=== PATIENT | male | born 1970 | race Caucasian/White ===

== ENCOUNTER 2018-02-02 05:46 | Inpatient (IN) ==
[2018-02-02] MEDS ORDERED: Chlorhexidine Gluconate 2% 1 Pack (2 Cloths) TOPICAL SCH (06:15)
[2018-02-02] MEDS ORDERED: Metoprolol Tartrate 25 MG Tablet PO SCH (06:15)
[2018-02-02] MEDS ORDERED: Sodium Chlor 0.9% Inj 500 ML IV.SIG SCH (07:00)
[2018-02-02] MEDS ORDERED: CEFAZOLIN IV.SIG SCH (07:00)
[2018-02-02] MEDS ORDERED: SODIUM CHLOR 0.9% IV.SIG SCH (07:00)
[2018-02-02 07:14] LABS: INR 1.2 Ratio
[2018-02-02] MEDS ORDERED: Lidocaine PF 1% Inj 5 ML Syringe INFILTRATN ONE (12:00)
[2018-02-02] MEDS ORDERED: Neostigmine Inj 5 MG/5 ML Syringe IV.PUSH ONE (12:00)
[2018-02-02] MEDS ORDERED: Glycopyrrolate Inj 1 MG/5 ML Syringe IV.PUSH ONE (12:00)
[2018-02-02] MEDS ORDERED: Sodium Chlor 0.9% Inj 1,000 ML IV.SIG SCH ×2 (12:00→15:00)
[2018-02-02] MEDS ORDERED: fentaNYL Citrate Inj 100 MCG/2 ML Ampul ONE (12:26)
[2018-02-02] MEDS ORDERED: *morphine SULFATE 10 MG/ML PERIprocedure ONLY ONE ×2 (12:43→12:52)
[2018-02-02 12:47] LABS: Baso % (Auto) 0.2 % (0.0-2.0); Eos % (Auto) 0.1 % (0.0-4.0); Hematocrit 49.4 % (39.0-51.0); Hemoglobin 16.4 gm/dL (13.0-17.0); Lymph # (Auto) 0.5 th/mm3 (1.0-4.8); Lymph % (Auto) 4.5 % (9.0-44.0); Mean Corpuscular HGB Conc 33.2 % (32.0-36.0); Mean Corpuscular Hemoglobin 28.8 pg (27.0-34.0); Mean Corpuscular Volume 86.6 fL (80.0-100.0); Mean Platelet Volume 8.1 fL (7.0-11.0); Mono # (Auto) 0.2 th/mm3 (0.0-0.9); Neut # (Auto) 10.2 th/mm3 (1.8-7.7); Neut % (Auto) 93.2 % (16.0-70.0); Platelet Count 130 th/mm3 (150-450); Red Blood Count 5.71 mil/mm3 (4.50-5.90); Red Cell Distribution Width 14.4 % (11.6-17.2)
[2018-02-02 13:04] LABS: Calcium 7.9 mg/dL (8.5-10.1); Carbon Dioxide 25.7 meq/L (21.0-32.0); Potassium 4.8 meq/L (3.5-5.1)
[2018-02-02] MEDS ORDERED: HYDROmorphone PF Inj 2 MG/ML Vial ONE ×3 (13:07→16:23)
--- NOTE | 2018-02-02 13:32 | MP ---
cc: Samy Galloway MD DATE OF OPERATION: 02/02/2018 DATE OF OPERATION: 02/02/2018 PREOPERATIVE DIAGNOSES: 1. Left 3 cm posterior solid renal mass. 2. History of benign prostatic hypertrophy. POSTOPERATIVE DIAGNOSES: 1. Left 3 cm posterior solid renal mass 2. History of benign prostatic hypertrophy. PROCEDURE PERFORMED: Left robotic radical nephrectomy with Intraoperative Ultrasound. SURGEON: Samy Galloway MD ANESTHESIA: General. COMPLICATIONS: None. PREOPERATIVE ANTIBIOTICS: Ancef 2 g IV. DRAINS: Jacinto catheter. SPECIMENS: Left kidney. ESTIMATED BLOOD LOSS: 50 mL. DISPOSITION: Stable to recovery. INDICATION FOR PROCEDURE: The patient is a 47-year-old male with history of BPH who was found to have a left renal mass several years ago. He has been doing active surveillance to follow this mass closely; however, recently the mass continued to grow in size. Due to concern of malignancy, the patient was then referred for definitive therapy. Treatment options were discussed including continued active surveillance, percutaneous cryoablation versus partial nephrectomy. Risks, benefits and alternatives were explained to the patient regarding each option. The patient consented to proceed with robotic left partial nephrectomy, possible right radical nephrectomy due to the location of the mass. DETAILS OF PROCEDURE: The patient was properly identified, brought back to the operating room and placed supine on the operative table. Proper timeout was performed under direction of Anesthesiology. The patient was intubated and induced under general anesthetics. Preoperative antibiotics in the form of Ancef 2 grams IV were given within 1 hour of start of the procedure. A 16-[place] Jacinto catheter was then placed under sterile technique. He was then placed in the right lateral decubitus position with the left side up. All pressure points were padded. He was then prepped and draped in normal sterile surgical fashion. Stab incision was made that was superior and lateral to the umbilicus triangulated off the xiphoid process of the 12th rib. A Veress needle was then passed into the abdomen and a pneumoperitoneum was achieved. The incision was extended to approximately 2 cm under direct visualization. I then passed a 12 mm camera port. The abdominal cavity was inspected. No evidence of intra-abdominal injury including bleeding was noticed. There was no anterior abdominal adhesions. At this time, the 4 remaining ports were then placed under direct visualization, including two 8 mm robotic ports triangulated off of the camera port, a 5 mm legal assistant port superior to the umbilicus in the midline and a 12 mm legal assistant port inferior to the middle umbilicus in the midline. The robot was then brought into proper position. I began by taking down the white line of Toldt reflecting the colon medially. This exposed the retroperitoneum. I then carefully dissected off the mesentery and the other tissues from the colon and presuming the kidney to expose the retroperitoneum. At this point, I identified the gonadal vein and ureter. A plane was developed between the ureter and the psoas muscle and the aorta. The kidney was then retracted anteriorly and marched up the psoas muscle, following the attachment of the left gonadal vein to the left renal vein. The artery was much inferior when the artery was first identified. It was dissected out circumferentially. There was significant amount of lymphatics and other accessory veins around the artery, which were taken with a robotic vessel sealer. Once the artery and vein were carefully dissected out, I then turned my attention to mobilizing the kidney. This began by taking down the attachments laterally with both blunt dissection and electrocautery to freely mobilize the kidney. At this point, the perinephric fat was then removed from the kidney to expose the kidney itself. I was able to completely remove all the fat from the kidney and flip the kidney over so that the posterior side of the kidney was exposed. I did come across the presumed renal mass. Intraoperative ultrasound was then used to find this mass; however, the mass appeared to go quite deep into the kidney itself and it was unclear whether I could get a negative margin or not. After careful examination, it was decided that it was necessary to remove the entire kidney. At this point, the kidney was then brought back into normal position. The artery and vein were then taken with the endovascular GI stapler separately. The upper pole attachments were then divided and ligated with the robotic vessel sealer. The ureter and gonadal vein inferiorly were taken with the vessel sealer. At this point, the kidney was completely free, it was then placed in an EndoCatch bag for later removal, The renal hilum and adrenal bed were inspected. Hemostasis was achieved. Anusha was then used for hemostatic purposes. However, the renal fossa did appear very dry and the spleen appeared intact. At this point, 3 grams of Anusha again were applied. The robot was then undocked. The kidney was extracted through the left lower quadrant incision. During extraction, the epigastric vein and artery were divided with minimal bleeding. The peritoneum was closed with 3-0 Vicryl. The fascia was then closed with a running #1 PDS. All skin incisions were closed with 4-0 Monocryl. Sponge, needle and instrument count was correct at the end of the case. This concluded the procedure. The patient was extubated and sent to recovery room in stable condition. He will be admitted for routine postoperative care. Samy Galloway MD EMJesus/KD , 11:46 AM , 01:10 PM MTDD
[2018-02-02] MEDS: Pantoprazole Inj 40 MG Vial IV.PUSH SCH (13:58)
[2018-02-02] MEDS: Morphine Inj 4 MG/ML Vial IV.PUSH PRN (17:23)
[2018-02-02] MEDS: Docusate Sodium 100 MG Capsule PO SCH (20:02)
[2018-02-03] MEDS: Morphine Inj 4 MG/ML Vial IV.PUSH PRN (10:08)
[2018-02-03] MEDS: Docusate Sodium 100 MG Capsule PO SCH ×2 (10:08→21:08)
[2018-02-03] MEDS: Fenofibrate 48 MG Tablet PO SCH (10:08)
--- NOTE | 2018-02-03 14:22 | P.PNURO ---
Subjective Patient symptoms today: Pt was seen at the bedside this afternoon. Pain is controlled, no issues overnight. Labs and VS are stable. Ambulating. Powers cath was removed at 6:30am today, he did not void yet. no BM yest. Ate regular food at lunch, no N/V after. no other c/o Objective Vital Signs: Vital Signs 02/02/18 15:00 02/02/18 16:30 02/02/18 18:36 Temperature Pulse Rate 71 60 Respiratory Rate 12 20 Blood Pressure 104/50 L 111/54 L Pulse Oximetry 96 02/02/18 18:37 02/02/18 20:40 02/03/18 00:08 Temperature 97.5 F L 97.5 F L Pulse Rate 63 64 Respiratory Rate 20 18 20 Blood Pressure 115/55 L 131/59 L Pulse Oximetry 96 96 02/03/18 01:49 02/03/18 04:44 02/03/18 12:00 Temperature 97.3 F L 97.0 F L Pulse Rate 60 62 Respiratory Rate 18 18 18 Blood Pressure 135/62 131/65 Pulse Oximetry 98 98 Intake & Output 02/02/18 02/03/18 02/03/18 18:59 06:59 18:59 Intake Total 2200 / 2200 660 / 660 Output Total 50 / 50 1000 / 1000 210 / 210 Balance 2150 / 2150 -340 / -340 -210 / -210 Weight 105 kg Intake: IV 1200 / 1200 300 / 300 Ofirmev Inj 1,000 mg In 100 ml 100 / 100 200 / 200 @ 400 mls/hr IV.SIG Q6H [facility] Rx# :[id number] LR 1000 mL Inj 1,000 ML @ 30 1000 / 1000 mls/hr IV.SIG .Q24H [facility] Rx#: [id number] Ancef Inj 1,000 MG In NS Inj 100 / 100 100 / 100 100 ML @ 200 mls/hr IV.SIG Q8H [facility] Rx#:[id number] Oral 360 / 360 Anesthesia Amount 1000 / 1000 Output: Urine 1000 / 1000 Estimated Blood Loss 50 / 50 Urine Amount (Catheter) 210 / 210 330 210 / 210 Result Diagrams: 02/02/18 12:28 02/02/18 12:28 Medications and IVs: Active Medications Generic Name Dose Route Start Last Admin Trade Name Freq PRN Reason Stop Dose Admin Chlorhexidine Gluconate 3 pack 02/02/18 06:15 02/02/18 06:47 Chlorhexidine 2% Cloth TOPICAL 02/05/18 06:03 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 Administration Docusate Sodium 100 mg 02/02/18 21:00 02/03/18 10:08 Colace PO Not Given BID IRA Fenofibrate 48 mg 02/03/18 09:00 02/03/18 10:08 Tricor PO 48 mg DAILY IRA Administration Acetaminophen 1,000 mg in 100 mls @ 400 mls/hr 02/02/18 14:00 02/03/18 10:06 Ofirmev Inj IV.SIG 100 mls/hr Q6H IRA Administration Sodium Chloride 1,000 mls @ 125 mls/hr 02/02/18 15:00 Ns Inj IV.SIG .Q10H [facility] Metoprolol Tartrate 25 mg 02/02/18 06:15 Lopressor PO 02/05/18 06:03 SPAR MACHINE OPERATOR [facility] Miscellaneous Information 1 each 02/02/18 14:19 Misc Nursing Information OTHER 02/03/18 14:19 UNSCH PRN SEE LABEL COMMENTS Morphine Sulfate 4 mg 02/02/18 11:37 02/03/18 10:08 Morphine Inj IV.PUSH 4 mg Q4H PRN Administration BREAKTHROUGH PAIN Ondansetron HCl 4 mg 02/02/18 11:37 02/03/18 11:43 Zofran Inj IV.PUSH 4 mg Q6H PRN Administration NAUSEA OR VOMITING Oxycodone HCl 10 mg 02/02/18 11:35 02/03/18 11:48 Roxicodone PO 10 mg Q6H PRN Administration PAIN SCALE 6 TO 10 Oxycodone HCl 5 mg 02/02/18 11:38 02/03/18 06:37 Roxicodone PO 5 mg Q4H PRN Administration PAIN SCALE 3 TO 5 Pantoprazole Sodium 40 mg 02/02/18 14:00 02/02/18 13:58 Protonix Inj IV.PUSH 40 mg Q24H [facility] Administration Povidone Iodine 1 applicatio 02/02/18 06:15 02/02/18 06:47 Betadine 5% Antisepsis Kit EACH NARE 02/05/18 06:03 1 applicatio SPAR MACHINE OPERATOR [facility] Administration Tamsulosin HCl 0.4 mg 02/02/18 14:30 02/03/18 10:08 Flomax PO 0.4 mg DAILY IRA Administration Objective Remarks: NAD RRR [place] clear. Abd soft. Incisions c/d/i Assessment and Plan - Plan 47y.o M POD#1 s/p Left robotic radical nephrectomy with Intraoperative Ultrasound. - Doing well - VS and LAbs are stable - Diet was advanced to regular at lunch, Tolerates it well - No issues with ambulation - Not voided yet after powers removed at AM Discussed with nurse let pt ambulate and try to void again within an hour, if not voiding, do bladder scan and if retains more then 250cc perform str cath. If continues to have issues with voiding do str cath q6-8h - DVT prophylaxis and IS if in bed - Possibly d/c home later this evening vs tomorrow Discussed Condition With: Discussed with Dr Galloway and pt's RN
[2018-02-03] MEDS: Pantoprazole Inj 40 MG Vial IV.PUSH SCH (14:25)
[2018-02-03 16:32] LABS: Baso % (Auto) 0.1 % (0.0-2.0); Eos % (Auto) 0.2 % (0.0-4.0); Hematocrit 45.7 % (39.0-51.0); Hemoglobin 15.3 gm/dL (13.0-17.0); Lymph # (Auto) 0.6 th/mm3 (1.0-4.8); Lymph % (Auto) 7.9 % (9.0-44.0); Mean Corpuscular HGB Conc 33.5 % (32.0-36.0); Mean Corpuscular Hemoglobin 29.2 pg (27.0-34.0); Mean Corpuscular Volume 87.3 fL (80.0-100.0); Mean Platelet Volume 8.4 fL (7.0-11.0); Mono # (Auto) 0.4 th/mm3 (0.0-0.9); Mono % (Auto) 5.3 % (0.0-8.0); Neut # (Auto) 6.9 th/mm3 (1.8-7.7); Neut % (Auto) 86.5 % (16.0-70.0); Platelet Count 113 th/mm3 (150-450); Red Blood Count 5.23 mil/mm3 (4.50-5.90); Red Cell Distribution Width 14.5 % (11.6-17.2); White Blood Count 7.9 th/mm3 (4.0-11.0)
[2018-02-03 16:47] LABS: Calcium 7.8 mg/dL (8.5-10.1); Carbon Dioxide 30.7 meq/L (21.0-32.0); Potassium 4.1 meq/L (3.5-5.1)
[2018-02-04 03:37] VITALS: RESP 18
[2018-02-04] MEDS: Fenofibrate 48 MG Tablet PO SCH (08:31)
[2018-02-04] MEDS: Docusate Sodium 100 MG Capsule PO SCH (08:31)
[2018-02-04 09:55] VITALS: BP 131/64; PULSE 71; TEMP 97.4; O2SAT 94
--- NOTE | 2018-02-04 11:03 | P.PNURO ---
Subjective Patient symptoms today: Pt was seen this afternoon. no acute events overnight. Labs are stable. Slightly increased Cr, expected after surgery. Pain is controlled. Tolerates diet well, Ambulated. Able to void after powers removal yesterday. + flatus, no BM yet Objective Vital Signs: Vital Signs 02/03/18 12:00 02/03/18 16:00 02/03/18 20:00 Temperature 97.0 F L 98.8 F 98.2 F Pulse Rate 62 75 69 Respiratory Rate 18 16 17 Blood Pressure 131/65 124/56 L 138/66 Pulse Oximetry 98 96 97 02/04/18 00:00 02/04/18 03:35 02/04/18 08:00 Temperature 98.5 F 97.4 F L Pulse Rate 70 71 Respiratory Rate 17 18 18 Blood Pressure 158/69 H 131/64 Pulse Oximetry 95 94 L Intake & Output 02/03/18 02/04/18 02/04/18 18:59 06:59 18:59 Intake Total 940 / 940 780 / 780 Output Total 210 / 210 750 / 750 Balance 730 / 730 30 / 30 Weight 104.6 kg Intake: IV 200 / 200 300 / 300 Ofirmev Inj 1,000 mg In 100 ml 200 / 200 200 / 200 @ 400 mls/hr IV.SIG Q6H [facility] Rx# :[id number] Oral 740 / 740 480 / 480 Output: Urine 750 / 750 Urine Amount (Catheter) 210 / 210 330 210 / 210 Other: Post Void Residual 600 # Voids 1 Date of Last Bowel Movement 02/01/18 # Bowel Movements 0 Result Diagrams: 02/03/18 15:52 02/03/18 15:52 Medications and IVs: Active Medications Generic Name Dose Route Start Last Admin Trade Name Freq PRN Reason Stop Dose Admin Chlorhexidine Gluconate 3 pack 02/02/18 06:15 02/02/18 06:47 Chlorhexidine 2% Cloth TOPICAL 02/05/18 06:03 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 Administration Docusate Sodium 100 mg 02/02/18 21:00 02/04/18 08:31 Colace PO 100 mg BID IRA Administration Fenofibrate 48 mg 02/03/18 09:00 02/04/18 08:31 Tricor PO 48 mg DAILY IRA Administration Acetaminophen 1,000 mg in 100 mls @ 400 mls/hr 02/02/18 14:00 02/04/18 08:31 Ofirmev Inj IV.SIG 400 mls/hr Q6H IRA Administration Sodium Chloride 1,000 mls @ 125 mls/hr 02/02/18 15:00 02/04/18 08:57 Ns Inj IV.SIG 125 mls/hr .Q10H [facility] Administration Metoprolol Tartrate 25 mg 02/02/18 06:15 Lopressor PO 02/05/18 06:03 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 IRA Morphine Sulfate 4 mg 02/02/18 11:37 02/03/18 10:08 Morphine Inj IV.PUSH 4 mg Q4H PRN Administration BREAKTHROUGH PAIN Ondansetron HCl 4 mg 02/02/18 11:37 02/03/18 11:43 Zofran Inj IV.PUSH 4 mg Q6H PRN Administration NAUSEA OR VOMITING Oxycodone HCl 10 mg 02/02/18 11:35 02/04/18 08:34 Roxicodone PO 10 mg Q6H PRN Administration PAIN SCALE 6 TO 10 Oxycodone HCl 5 mg 02/02/18 11:38 02/03/18 06:37 Roxicodone PO 5 mg Q4H PRN Administration PAIN SCALE 3 TO 5 Pantoprazole Sodium 40 mg 02/02/18 14:00 02/03/18 14:25 Protonix Inj IV.PUSH 40 mg Q24H IRA Administration Povidone Iodine 1 applicatio 02/02/18 06:15 02/02/18 06:47 Betadine 5% Antisepsis Kit EACH NARE 02/05/18 06:03 1 applicatio 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 Abd soft. Incisions c/d/i Assessment and Plan - Plan 47y.o M POD#2 s/p Left robotic radical nephrectomy with Intraoperative Ultrasound. - Doing well - VS and LAbs are stable - Tolerates regular diet and ambulates without issues - No issues with ambulation - Voids ok - Discharge initiated Discussed Condition With: Dr Laverne MOON attending who agrees with this plan
== END 2018-02-04 13:50 | disposition home or self-care (01) ==
LOC: HOR 05:46 → HSDI 11:41 → N07 16:46
PROVIDERS: ADMIT Urology; ATTEND Urology